=== PATIENT | female | born 1955 ===

== ENCOUNTER 2019-08-19 11:34 | Outpatient (RCR) | payer MEDICARE | END 2019-08-22 | disposition home or self-care (01) | LOC: WCC 11:34 | DX: T86.828 Other complications of skin graft (allograft) (autograft) (principal); Z79.899 Other long term (current) drug therapy; Z88.2 Allergy status to sulfonamides | CPT/HCPCS: G0277; G0463 ==

== ENCOUNTER 2019-08-23 09:35 | Outpatient (RCR) | payer MEDICARE | END 2019-09-21 | disposition home or self-care (01) | LOC: WCC 09:35 | DX: T86.828 Other complications of skin graft (allograft) (autograft) (principal); L98.492 Non-pressure chronic ulcer of skin of other sites with fat layer exposed; S21.001S Unspecified open wound of right breast, sequela; X58.XXXS Exposure to other specified factors, sequela; Z88.2 Allergy status to sulfonamides; Z88.8 Allergy status to other drugs, medicaments and biological substances; Z98.1 Arthrodesis status | CPT/HCPCS: 11042; G0277 ==